=== PATIENT | male | born 2000 | race Two or more races ===

== ENCOUNTER 2023-12-07 23:18 | Emergency (ER) | payer SELFPAY ==
[2023-12-07] MEDS: Ibuprofen 600 MG Tab PO ONE (23:32)
[2023-12-07] MEDS: Acetaminophen 325 MG Tab PO ONE (23:32)
[2023-12-07] MEDS: Azithromycin 250 MG Tab PO ONE (23:33)
== END 2023-12-07 23:45 | disposition home or self-care (01) ==
LOC: MW.ED 23:18
DX: J02.0 Streptococcal pharyngitis (principal); Z75.8 Other problems related to medical facilities and other health care
CPT/HCPCS: 99282; A9270; 99283